=== PATIENT | female | born 1965 | race Caucasian/White ===

== ENCOUNTER 2016-11-04 07:23 | Day surgery (SDC) | payer BC ==
--- NOTE | ~2016-11-04 | EGD ---
EGD REPORT [facility] [address] [id number] NAME: MCKENZIE MERCHANT : [birth year] STATUS : REG [facility]#: [id number] AGE: 51 ADM/REG DATE : 11/04/16 MR#: [id number] REPORT SERV DATE: 11/04/16 DICTATED BY: ISAIAS HITCHCOCK DATE: 11/04/16 REPORT STATUS : Draft TRANSCRIBED BY: [facility] DATE: 11/04/16 Endoscopy Center Patient Name: Mckenzie Merchant Date of : 1965 Attending MD: ISAIAS HITCHCOCK, Procedure Date No Time: 11/04/2016 Procedure: Colonoscopy Indications: Screening for colorectal malignant neoplasm, This is the patient's first colonoscopy Referring MD: Fiorella Cummings Medicines: Propofol per Anesthesia Complications: No immediate complications. Estimated blood loss: None. Procedure: Pre-Anesthesia Assessment: - ASA Grade Assessment: II - A patient with mild systemic disease. After I obtained informed consent, the scope was passed under direct vision. Throughout the procedure, the patient's blood pressure, pulse, and oxygen saturations were monitored continuously. The CF [id number] was introduced through the anus and advanced to the terminal ileum. The colonoscopy was performed with ease. The patient tolerated the procedure well. The quality of the bowel preparation was good. Findings: The perianal and digital rectal examinations were normal. The terminal ileum appeared normal. Anal papilla(e) were hypertrophied. The exam was otherwise without abnormality. Impression: - The examined portion of the ileum was normal. - Anal papilla(e) were hypertrophied. - The examination was otherwise normal. Recommendation: - Patient has a contact number available for emergencies. The signs and symptoms of potential delayed complications were discussed with the patient. Return to normal activities tomorrow. Written discharge instructions were provided to the patient. - Regular diet. - Discharge patient to home (with escort). - Continue present medications. - Repeat colonoscopy in 10 years for screening purposes. Procedure Code(s): --- Professional --- EGD REPORT [place] [id number] [id number] NAME: MCKENZIE MERCHANT : [birth year] STATUS : REG [facility] [place] PAT#: [id number] AGE: 51 ADM/REG DATE : 11/04/16 MR#: [id number] REPORT SERV DATE: 11/04/16 DICTATED BY: ISAIAS HITCHCOCK DATE: 11/04/16 REPORT STATUS : Draft TRANSCRIBED BY: [employer] DATE: 11/04/16 [id number], Colorectal cancer screening; colonoscopy on individual not meeting criteria for high risk Diagnosis Code(s): --- Professional --- K62.89, Other specified diseases of anus and rectum Z12.11, Encounter for screening for malignant neoplasm of colon CPT copyright 2013 [employer]. All rights reserved. The codes documented in this report are preliminary and upon layout artist review may be revised to meet current compliance requirements. ISAIAS HITCHCOCK, 11/04/2016 9:16 AM This report has been signed electronically. Number of Addenda: 0 Note Initiated On: 11/04/2016 8:39 AM Scope Withdrawal Time 0 hours 6 minutes 43 seconds [id number] [id number]
[~2016-11-04 07:23] MED LIST: COZ25 PO; EFFEXXR75 PO; MAGNESIUM PO; MULTIVIT/MIN PO
== END 2016-11-04 23:59 | disposition home or self-care (01) ==
LOC: DMU 07:23
PROVIDERS: Internal Medicine Gastroenterology
PROC: 0DJD8ZZ Inspection of Lower Intestinal Tract, Via Natural or Artificial Opening Endoscopic (ICD-10-PCS; principal; 2016-11-04 09:00)
DX: Z12.11 Encounter for screening for malignant neoplasm of colon (principal); K62.89 Other specified diseases of anus and rectum
CPT/HCPCS: 84703